=== PATIENT | male | born 1975 | race Caucasian/White ===

== ENCOUNTER 2018-10-14 13:22 | Emergency (ER) | payer BC, SELFPAY ==
[~2018-10-14 13:22] MED LIST: Iopamidol 370 76% 100 ML VIAL ONE
[2018-10-14 13:57] LABS: #Eosinphils 0.2 thou/uL (0.0-0.7); #Lymphocytes 1.1 thou/uL (1.20-3.40); #Monocytes 0.8 thou/uL (0.11-0.59); #Neutrophils 7.2 thou/uL (1.40-6.50); %Basophils 0.3 % (0.0-1.0); %Eosinophils 2.4 % (0.0-10.0); %Lymphocytes 11.8 % (21.0-51.0); %Monocytes 8.3 % (0.0-10.0); %Neutrophils 77.2 % (42.0-75.0); Hemoglobin 13.4 g/dL (14.0-18.0); Mean Corpuscular HGB CONC 34.2 g/dL (32.0-36.0); Mean Corpuscular Hemoglobin 28.9 pg (27.0-31.0); Mean Corpuscular Volume 84.7 fL (78.0-98.0); Mean Platelet Volume 8.7 fL (7.4-10.4); Platelet Count 143 thou/uL (130-400); Red Blood Cell (RBC) Count 4.64 mill/uL (4.70-6.10); White Blood Cell (WBC) Count 9.3 thou/uL (4.8-10.8)
[2018-10-14] MEDS ORDERED: Ondansetron PF 4 MG/2 ML Vial ONE (14:05)
[2018-10-14] MEDS ORDERED: Morphine 4 MG/ML VIAL ONE (14:05)
[2018-10-14] MEDS ORDERED: Ciprofloxacin Lactate/D5W 400 mg/200 ml Premix ONE (14:05)
[2018-10-14 14:10] LABS: ALT (SGPT) 57 U/L (8-55); AST (SGOT) 22 U/L (5-34); Albumin 4.2 g/dL (3.5-5.0); Alkaline Phosphatase 59 U/L (40-150); Anion Gap 15 mmol/L (10-20); BUN (Urea Nitrogen) 14 mg/dL (8.9-20.6); Bilirubin, Total 0.4 mg/dL (0.2-1.2); Calc. Creatinine Clearance 0 mL/min (70-130); Calcium 9.2 mg/dL (7.8-10.44); Carbon Dioxide 24 mmol/L (22-29); Chloride 103 mmol/L (98-107); Estimated GFR-MDRD 62; Globulin 2.8 g/dL (2.4-3.5); Glucose 141 mg/dL (70-105); Lipase 25 U/L (8-78); Potassium 3.8 mmol/L (3.5-5.1); Sodium 138 mmol/L (136-145)
--- NOTE | 2018-10-14 14:40 | CT ---
CT of the abdomen and pelvis: 10/14/2018 COMPARISON: None HISTORY: Fever and abdominal pain TECHNIQUE: Axial CT imaging at 5 mm intervals from lung bases through pubic symphysis with IV contras t. Coronal reformatted imaging obtained. FINDINGS: The visualized lung bases are unremarkable. No free intraperitoneal air or fluid. The hepatic parenchyma is diffusely hypodense suggesting steatosis. Limited assessment of the gallbla dder appears grossly unremarkable. The spleen, pancreas, and adrenal glands appear grossly unremarkable. There is a tiny hypodensity within the inferior aspect of the liver on axial image 38, too small to characterize. Kidneys appear grossly unremarkable. There is a focal area of sigmoid colonic wall thickening with pericolonic fat stranding. There is an associated diverticulum of the sigmoid colon. This involves a segment of the sigmoid colon measuring approximately 6-7 cm in length. Findings are consistent with acute sigmoid diverticulitis. No associated abscess or obstruction. The appendix is unremarkable. Vascular structures appear grossly unremarkable. There is no lymphadenopathy noted. There is disc space narrowing and vacuum disc formation at the lumbosacral junction. No worrisome lyt ic or blastic bone lesions. IMPRESSION: Findings consistent with sigmoid diverticulitis. Recommend direct visualization via colon oscopy following resolution of the acute symptoms to exclude an underlying colonic lesion.
[2018-10-14] MEDS ORDERED: Acetaminophen 500 MG TAB ONE (14:45)
[2018-10-14 14:53] LABS: Bilirubin Negative (Negative); Blood, Urine Negative (Negative); Clarity Clear (Clear); Glucose, Urine (Dipstick) Negative (Negative); Leukocyte Negative (Negative); Nitrite Negative (Negative); Protein, Urine (Dipstick) Negative (Neg-Trace); Urobilinogen 0.2 mg/dL (0.2-1.0)
[2018-10-14] MEDS ORDERED: metroNIDAZOLE 500 MG/100 ML BAG ONE (15:11)
== END 2018-10-14 16:48 | disposition home or self-care (01) ==
LOC: SCSER 13:22
DX: K57.32 Diverticulitis of large intestine without perforation or abscess without bleeding (principal); E78.5 Hyperlipidemia, unspecified; I10 Essential (primary) hypertension; F17.210 Nicotine dependence, cigarettes, uncomplicated; Z79.82 Long term (current) use of aspirin; Z79.899 Other long term (current) drug therapy
CPT/HCPCS: 74177; 80053; 81003; 83605; 83690; 85025; 96365; 96367; 96375; J0744; J2270; J2405

== ENCOUNTER 2025-04-08 18:35 | Emergency (ER) | payer OTHER | END 2025-04-08 20:30 | disposition home or self-care (01) | LOC: ERS 18:35 | DX: S06.9X1A Unspecified intracranial injury with loss of consciousness of 30 minutes or less, initial encounter (principal); I10 Essential (primary) hypertension; F17.200 Nicotine dependence, unspecified, uncomplicated; W22.8XXA Striking against or struck by other objects, initial encounter; W10.9XXA Fall (on) (from) unspecified stairs and steps, initial encounter | CPT/HCPCS: 70450; 72125; G0390 ==